=== PATIENT | female | born 1960 | race Caucasian/White ===

== ENCOUNTER 2021-04-05 12:05 | Emergency (ER) | payer OTHER ==
[~2021-04-05] VITALS: Ht 162.6 cm; Wt 113.4 kg
[2021-04-05 12:23] VITALS: BP_SYST 140
[2021-04-05] MEDS ORDERED: ONDANSETRON 4 MG ODT TAB PO ONE (12:45)
[2021-04-05] MEDS ORDERED: TRAM50TA PO (13:49)
[2021-04-05] MEDS ORDERED: NAPR-688 PO (13:49)
[2021-04-05 14:20] VITALS: BP_SYST 140
== END 2021-04-05 14:20 | disposition home or self-care (01) ==
LOC: SED 12:05
DX: S16.1XXA Strain of muscle, fascia and tendon at neck level, initial encounter (principal); R10.2 Pelvic and perineal pain; M25.561 Pain in right knee; M25.562 Pain in left knee; Z88.5 Allergy status to narcotic agent; Z79.899 Other long term (current) drug therapy; V49.49XA Driver injured in collision with other motor vehicles in traffic accident, initial encounter; Y93.89 Activity, other specified; Y92.89 Other specified places as the place of occurrence of the external cause; Y99.8 Other external cause status
CPT/HCPCS: 72040; 72170; 73560; 99284; Q0162